=== PATIENT | female | born 2005 | race Caucasian/White ===

== ENCOUNTER 2024-04-27 15:21 | Emergency (ER) | payer OTHER ==
[~2024-04-27] VITALS: Ht 157.5 cm; Wt 66.2 kg
[2024-04-27] MEDS ORDERED: GABAPENTIN100 MG PO (15:34)
[2024-04-27] MEDS ORDERED: PROPRANOLOL HCL10 MG (15:34)
[2024-04-27] MEDS ORDERED: CLARITIN5 MG PO (15:35)
[2024-04-27] MEDS ORDERED: CROMOLYN S20 MG/1 ML PO (15:35)
[2024-04-27] MEDS ORDERED: ELDERTONIC LIQ473 ML PO (15:36)
[2024-04-27] MEDS ORDERED: PEPCID AC10 MG PO (15:36)
[2024-04-27] MEDS ORDERED: PREDNISONE20 MG PO (16:27)
[2024-04-27] MEDS ORDERED: HYDROCODON-ACE1 EA10 PO (16:27)
[2024-04-27] MEDS ORDERED: ONDANSETRON ODT4 MG PO (16:28)
[2024-04-27] MEDS ORDERED: predniSONE 20 MG TAB PO ONE (16:30)
[2024-04-27] MEDS ORDERED: ONDANSETRON 4 MG TAB ODT SL ONE (16:30)
[2024-04-27] MEDS ORDERED: HYDROCODONE/ACETA 5/325 TAB PO ONE (16:30)
[2024-04-27 16:43] VITALS: BP 121/86
== END 2024-04-27 16:45 | disposition home or self-care (01) ==
LOC: ED 15:21
DX: M54.50 Low back pain, unspecified (principal); Z79.899 Other long term (current) drug therapy
CPT/HCPCS: 99283; A9270; J7512

== ENCOUNTER 2024-07-23 20:16 | Emergency (ER) | payer OTHER ==
[~2024-07-23] VITALS: Ht 157.5 cm; Wt 71.0 kg
[~2024-07-23 20:16] MED LIST: CLARITIN5 MG PO; CROMOLYN S20 MG/1 ML PO; ELDERTONIC LIQ473 ML PO; GABAPENTIN100 MG PO; HYDROCODON-ACE1 EA10 PO; ONDANSETRON ODT4 MG PO; PEPCID AC10 MG PO; PREDNISONE20 MG PO; PROPRANOLOL HCL10 MG
[2024-07-23] MEDS ORDERED: VENTOLIN HFA18 GM INH (20:27)
[2024-07-23] MEDS ORDERED: NITROGLYCERIN 0.4 MG SUBL SL PRN (20:30)
[2024-07-23] MEDS ORDERED: ASPIRIN 81 MG CHEW PO ONE (20:30)
[2024-07-23] MEDS ORDERED: LORazepam 2 MG/ML VIAL IV ONE (20:45)
[2024-07-23 20:49] LABS: BASOPHILS 0.3 % (0.1-1.2); EOSINOPHILS 1.7 % (0.7-5.8); HEMATOCRIT 38.8 % (34.1-44.9); HEMOGLOBIN 13.2 g/dL (11.2-15.7); LYMPHOCYTES 38.4 % (19.3-51.7); MCH 29.5 PG (25.6-32.2); MCV 86.6 fL (79.4-94.8); MONOCYTES 8.2 % (4.7-12.5); NEUTROPHILS 51.3 % (34.0-71.1); PLATELET COUNT 346 K/uL (182-369); RBC 4.48 M/uL (3.93-5.22)
[2024-07-23 21:11] LABS: ALBUMIN 3.7 g/dL (3.4-5.0); ALKALINE PHOSPHATASE 64 U/L (46-116); ALT (SGPT) 23 U/L (14-59); ANION GAP 13.7 (7-21); AST (SGOT) 17 U/L (15-37); BILIRUBIN, TOTAL 0.3 mg/dL (0.2-1.0); BUN/CREATININE RATIO 13.33 (6.0-28.6); CALCIUM 9.6 mg/dL (8.5-10.1); CARBON DIOXIDE 28 mmol/L (21-32); CHLORIDE 103 mmol/L (98-107); GLOMERULAR FILTRATION RATE,EST 94 mL/min (>60); MAGNESIUM 1.9 mg/dL (1.8-2.4); POTASSIUM 3.7 mmol/L (3.5-5.1); PROTEIN, TOTAL 7.8 g/dL (6.4-8.2); UREA NITROGEN 12 mg/dL (7-18)
[2024-07-23] MEDS ORDERED: LORazepam 1 MG HOME.PACK PO ONE (21:30)
[2024-07-23 22:33] VITALS: BP 119/58
--- NOTE | 2024-07-24 21:33 | EKG ---
[facility] [address] [facility] [place] [address] Signed Normal sinus rhythm Normal ECG No previous ECGs available Confirmed by Rory Garcia MD () on 07/24/2024 9:33:44 PM Electronically Signed By: RORY GARCIA MD [id number] PATIENT NAME: WALI CABALLERO Electrocardiogram DATE OF : [birth year] PHYSICIAN: RORY GARCIA MD REPORT #: [id number] REPORT IS CONFIDENTIAL AND NOT TO BE RELEASED WITHOUT AUTHORIZATION
== END 2024-07-23 22:33 | disposition home or self-care (01) ==
LOC: ED 20:16
PROVIDERS: Family Medicine
DX: R07.89 Other chest pain (principal); Z79.899 Other long term (current) drug therapy
CPT/HCPCS: 36415; 71045; 80053; 83735; 84443; 84484; 85025; 93005; 93010; 96374; 99285-25; A9270; J2060